=== PATIENT | female | born 1935 | race Caucasian/White ===

== ENCOUNTER 2016-12-02 14:23 | Inpatient (IN) | payer OTHER ==
[~2016-12-02] VITALS: Ht 154.9 cm; Wt 65.7 kg
[2016-12-02 14:51] LABS: HEMATOCRIT 40.6 % (36.0-46.0); MCH 31.2 PG (29.0-34.0); MCHC 34.2 G/DL (30.0-36.0); MCV 91.2 FL (83-99); PLATELET COUNT 382 K/uL (156-360); RBC DIS.WIDTH-CV 13.6 % (11.8-14.6); RBC DIS.WIDTH-SD 44.7 % (39-53); RED BLOOD COUNT 4.45 M/uL (3.80-5.20); WHITE BLOOD COUNT 16.1 K/uL (4.1-10.2)
[2016-12-02 15:01] LABS: CHLORIDE 98 mEq/L (99-109); POTASSIUM 4.4 mEq/L (3.7-5.4); SODIUM 133 mEq/L (136-147)
[2016-12-02 15:03] LABS: GLUCOSE 194 mg/dL (70-99)
[2016-12-02 15:04] LABS: ANION GAP 15 MEQ/L (2-14)
[2016-12-02 15:06] LABS: GFR ESTIMATE (CALCULATED) 36 mL/min/
[2016-12-02 15:07] LABS: UREA NITROGEN (BUN) 27 mg/dL (9-23)
[2016-12-02] MEDS ORDERED: BREO ELLIPTA 21 EACH IH (16:58)
[2016-12-02] MEDS ORDERED: OMNICEF300 MG PO (16:59)
[2016-12-02] MEDS ORDERED: PREDNISONE10 MG PO (16:59)
[2016-12-02] MEDS ORDERED: PHENERGAN-CODE120 ML PO (17:00)
[2016-12-02] MEDS ORDERED: LO-DOSE ASPIRIN81 M1 PO (17:00)
[2016-12-02] MEDS ORDERED: GABAPENTIN600 MG PO (17:00)
[2016-12-02] MEDS ORDERED: METFORMIN HCL500 M4 PO (17:01)
[2016-12-02] MEDS ORDERED: CRESTOR5 MG PO (17:01)
[2016-12-02] MEDS ORDERED: TENORETIC 501 TABLET PO (17:01)
[2016-12-02] MEDS ORDERED: ALTACE2.5 MG PO (17:02)
[2016-12-02] MEDS ORDERED: CILOSTAZOL100 MG PO (17:03)
[2016-12-02 21:03] VITALS: BP 125/81
[2016-12-02 23:00] VITALS: BP 118/64
[2016-12-03 07:06] LABS: MCH 31.2 PG (29.0-34.0); MCHC 33.3 G/DL (30.0-36.0); MCV 93.5 FL (83-99); MEAN PLAT.VOLUME 9.3 uM^3 (9.5-12.4); PLATELET COUNT 290 K/uL (156-360); RBC DIS.WIDTH-CV 13.8 % (11.8-14.6); RBC DIS.WIDTH-SD 47.1 % (39-53); RED BLOOD COUNT 3.85 M/uL (3.80-5.20); WHITE BLOOD COUNT 11.6 K/uL (4.1-10.2)
[2016-12-03 07:29] LABS: ALKALINE PHOSPHATASE 70 IU/L (3-129); ANION GAP 10 MEQ/L (2-14); CHLORIDE 103 MEQ/L (99-109); GFR ESTIMATE (CALCULATED) 46 mL/min/; POTASSIUM 4.6 MEQ/L (3.7-5.4); SAMPLE HEMOLYSIS CHECK 2; SAMPLE ICTERIC CHECK 0; SAMPLE LIPEMIA CHECK 0; SODIUM 138 MEQ/L (136-147); TOTAL BILIRUBIN 0.6 MG/DL (0.0-1.0); UREA NITROGEN (BUN) 23 mg/dL (9-23)
[2016-12-03 07:33] LABS: GLUCOSE 120 mg/dL (70-99)
[2016-12-03 09:36] VITALS: BP 130/62
[2016-12-03 17:09] VITALS: BP 151/69
[2016-12-03 23:07] VITALS: BP 114/59
[2016-12-04 07:14] LABS: HEMATOCRIT 34.7 % (36.0-46.0); MCH 31.1 PG (29.0-34.0); MCHC 33.7 G/DL (30.0-36.0); MCV 92.3 FL (83-99); MEAN PLAT.VOLUME 9.3 uM^3 (9.5-12.4); PLATELET COUNT 298 K/uL (156-360); RBC DIS.WIDTH-CV 13.9 % (11.8-14.6); RED BLOOD COUNT 3.76 M/uL (3.80-5.20); WHITE BLOOD COUNT 11.2 K/uL (4.1-10.2)
[2016-12-04 07:39] LABS: ALKALINE PHOSPHATASE 63 IU/L (3-129); ANION GAP 10 MEQ/L (2-14); CHLORIDE 104 MEQ/L (99-109); GFR ESTIMATE (CALCULATED) 42 mL/min/; GLUCOSE 124 mg/dL (70-99); POTASSIUM 3.9 MEQ/L (3.7-5.4); SAMPLE HEMOLYSIS CHECK 1; SAMPLE ICTERIC CHECK 0; SAMPLE LIPEMIA CHECK 0; SODIUM 137 MEQ/L (136-147); TOTAL BILIRUBIN 0.5 MG/DL (0.0-1.0); UREA NITROGEN (BUN) 24 mg/dL (9-23)
[2016-12-04 09:26] VITALS: BP 11/61
[2016-12-04 11:29] LABS: POINT-OF-CARE METER ID UU13113717
[2016-12-04 16:00] VITALS: BP 143/76
[2016-12-04 16:32] LABS: POINT-OF-CARE METER ID UU13113717
[2016-12-04 23:10] VITALS: BP 131/64
[2016-12-05 05:56] LABS: POINT-OF-CARE METER ID UU13113725
[2016-12-05 07:42] VITALS: BP 119/65
[2016-12-05 11:10] LABS: POINT-OF-CARE METER ID UU13113725
[2016-12-05 15:51] VITALS: BP 136/73
[2016-12-05 15:58] LABS: POINT-OF-CARE METER ID UU13113725
[2016-12-05 21:01] LABS: POINT-OF-CARE METER ID UU13113717
[2016-12-06 00:18] VITALS: BP 145/72
[2016-12-06 06:20] LABS: POINT-OF-CARE METER ID UU13113717
[2016-12-06 08:43] VITALS: BP 107/58
[2016-12-06 11:51] LABS: POINT-OF-CARE METER ID UU13113717
[2016-12-06] MEDS ORDERED: LEVAQUIN500 MG PO (14:44)
[2016-12-06] MEDS ORDERED: AUGMENTIN500 MG PO (14:44)
[2016-12-06] MEDS ORDERED: PHENERGAN-CODE120 ML PO (14:44)
== END 2016-12-06 16:35 | disposition home or self-care (01) | DRG 194 ==
LOC: EME 14:23 → EDOF 18:35 → 5EAST 18:35
PROVIDERS: Internal Medicine
DX: J18.9 Pneumonia, unspecified organism (principal); E87.1 Hypo-osmolality and hyponatremia; J98.11 Atelectasis; E11.40 Type 2 diabetes mellitus with diabetic neuropathy, unspecified; R09.02 Hypoxemia; M54.9 Dorsalgia, unspecified; I10 Essential (primary) hypertension; Z60.2 Problems related to living alone; Z88.0 Allergy status to penicillin; Z88.1 Allergy status to other antibiotic agents
CPT/HCPCS: 71020; 80048; 80053; 82565; 82948; 83605; 85027; 87040; 94640; 94640 76; 94799; 99202; 99281; 99285; J0696; J1650; J1815; J1956; J2543; J7030; J7050